=== PATIENT | male | born 1965 | race Caucasian/White ===

== ENCOUNTER 2016-08-12 06:10 | Day surgery (SDC) | payer OTHER ==
[2016-08-12] MEDS ORDERED: LACTATED RINGERS 1,000 ML IV ONE (06:38)
[2016-08-12] MEDS ORDERED: GLYCOPYRROLATE 1 MG/5 ML VIAL IVP ONE (08:21)
[2016-08-12] MEDS ORDERED: MIDAZOLAM 2 MG/2 ML VIAL IVP ONE (08:21)
[2016-08-12] MEDS ORDERED: METOCLOPRAMIDE 10 MG/2 ML VIAL IVP ONE (08:21)
[2016-08-12] MEDS ORDERED: KETAMINE 500 MG/10 ML VIAL IVP ONE (08:21)
[2016-08-12] MEDS ORDERED: ONDANSETRON 4 MG/2 ML VIAL IVP ONE (08:21)
[2016-08-12] MEDS ORDERED: PROPOFOL 200 MG/20 ML VIAL IVP ONE (08:21)
[2016-08-12] MEDS ORDERED: LIDOCAINE-MPF 2% 5 ML VIAL IM ONE (08:21)
== END 2016-08-12 06:11 | disposition home or self-care (01) ==
PROC: 0DBL8ZX Excision of Transverse Colon, Via Natural or Artificial Opening Endoscopic, Diagnostic (ICD-10-PCS; 2016-08-12)
PROC: 0DBH8ZX Excision of Cecum, Via Natural or Artificial Opening Endoscopic, Diagnostic (ICD-10-PCS; principal; 2016-08-12 07:30)
DX: Z12.11 Encounter for screening for malignant neoplasm of colon (principal); K64.4 Residual hemorrhoidal skin tags; K64.8 Other hemorrhoids; K21.9 Gastro-esophageal reflux disease without esophagitis; G47.30 Sleep apnea, unspecified; E66.01 Morbid (severe) obesity due to excess calories; Z80.0 Family history of malignant neoplasm of digestive organs; Z83.3 Family history of diabetes mellitus; Z90.49 Acquired absence of other specified parts of digestive tract; Z68.44 Body mass index [BMI] 60.0-69.9, adult; Z96.659 Presence of unspecified artificial knee joint
CPT/HCPCS: 45380; J7120

== ENCOUNTER 2016-10-15 09:34 | Emergency (ER) | payer OTHER ==
[2016-10-15] MEDS ORDERED: DEXAMETHASONE 10 MG/ML VIAL PO STA (10:42)
--- NOTE | 2016-10-15 10:47 | ED Physician Documentation ---
PD HPI BACK PAIN - Stated complaint Stated Complaint: LUMBAR PX - Chief complaint Chief Complaint: Back Pain - History obtained from History obtained from: Patient, Family - History of Present Illness Timing - onset: How many weeks ago (2) Timing - duration: Weeks (2) Timing - details: Gradual onset, Still present, Waxing and waning Location: Lower, Right Quality: Pain, Spasm, Sharp Associated symptoms: Numbness (To the top of the right foot.). No: Fever, Weakness, Incontinent of urine Improves with: Rest, Position Worsened by: Movement Contributing factors: Other (standing for graduation 2 weeks ago this started. Walked a long way yesterday and this is much worse.) Similar symptoms before: No diagnosis Recently seen: Not recently seen - Additional information Additional information: 50 y/o male has "over done it" 2 weeks ago with prolonged standing and then yesterday he went to [place] and did a lot of walking and this morning he is so stiff he could barely get out of bed. Review of Systems Constitutional: denies: Fever Nose: denies: Congestion Throat: denies: Sore throat Cardiac: denies: Chest pain / pressure, Palpitations Respiratory: reports: Cough (chronically X 2 years). denies: Dyspnea GI: denies: Abdominal Pain, Nausea, Vomiting : denies: Dysuria, Frequency Skin: denies: Rash Musculoskeletal: reports: Back pain. denies: Neck pain, Extremity pain, Joint pain, Extremity swelling Neurologic: reports: Numbness (to the top of the right foot over the 1/2 interspace.). denies: Generalized weakness, Focal weakness PD PAST MEDICAL HISTORY - Past Medical History Cardiovascular: None Respiratory: Sleep apnea, CPAP use Neuro: Headache/migraine, Peripheral neuropathy Endocrine/Autoimmune: None GI: GERD : None HEENT: None Psych: None Musculoskeletal: Osteoarthritis Derm: None - Past Surgical History Past Surgical History: Yes General: Cholecystectomy, Colonoscopy Ortho: Knee replacement - Present Medications Home Medications: Ambulatory Orders Medication Instructions Recorded Confirmed Gabapentin [Gralise] 600 mg PO BID 02/04/13 10/15/16 Metoprolol Succinate [Toprol Xl] 50 mg PO DAILY 02/04/13 10/15/16 Cholecalciferol (Vitamin D3) 1 tab PO DAILY 06/25/14 10/15/16 [Vitamin D-400] Multivitamin [Multi Vitamin Daily] 1 tab PO DAILY 06/25/14 10/15/16 [place]-3 Fatty Acids/Fish Oil [Fish 1 tab PO DAILY 06/25/14 10/15/16 Oil 1,000 mg Capsule] Pantoprazole Sodium [Protonix] 40 mg PO BID 06/25/14 10/15/16 Cyclobenzaprine [Flexeril] 10 mg PO TID PRN #20 tablet 10/15/16 HYDROcod/ACETAM 5/325 [[place] 5/325] 1 - 2 ea PO Q6H PRN #15 tablet 10/15/16 Meloxicam [Meloxicam] 15 mg PO DAILY 10/15/16 10/15/16 - Allergies Allergies/Adverse Reactions: Allergies Allergy/AdvReac Type Severity Reaction Status Date / Time No Known Drug Allergies Allergy Verified 10/15/16 09:42 - Social History Does the pt smoke?: No Smoking Status: Never smoker Does the pt drink ETOH?: Yes ETOH Use: Beer Does the pt have substance abuse?: No - Immunizations Immunizations are current?: Yes - POLST Patient has POLST: No PD ED PE NORMAL - Vitals Vital signs reviewed: Yes (normal ) - General General: No acute distress, Well developed/nourished - HEENT HEENT: Atraumatic, PERRL, EOMI - Neck Neck: Supple, no meningeal sign - Cardiac Cardiac: RRR, No murmur - Respiratory Respiratory: No respiratory distress, Clear bilaterally - Back Back: No CVA TTP, No spinal TTP, Other (There is tenderness to the paraspinous muscles over the right lower lumbar area. ) - Derm Derm: Normal color, Warm and dry, No rash - Extremities Extremities: No deformity, No edema - Neuro Neuro: Alert and oriented X 3, No motor deficit, Normal speech, Other ( subjective numbness to the dorsal 1/2 interspace on the right foot. ) - Psych Psych: Normal mood, Normal affect Results - Vitals Vitals: Vital Signs - 24 hr 10/15/16 09:40 Heart Rate 65 Respiratory 15 Rate Blood Pressure 128/67 O2 Saturation 97 Oxygen O2 Source Room air PD MEDICAL DECISION MAKING - ED course Complexity details: considered differential, d/w patient ED course: 50 y/o male with right sided sciatica is given decadron in the ED and we will put him on some pain medication and muscle relaxant. Departure - Departure Disposition: Home, Self Care Clinical Impression: Sciatica Qualifiers: Laterality: right Qualified Code(s): M54.31 - Sciatica, right side Condition: Stable Instructions: ED Spasm Back No Trauma, ED Sciatica Follow-Up: Kiya Gallegos DO [Primary Care Provider] - Prescriptions: Cyclobenzaprine [Flexeril] 10 mg PO TID PRN #20 tablet PRN Reason: Spasms HYDROcod/ACETAM 5/325 [[place] 5/325] 1 - 2 ea PO Q6H PRN #15 tablet PRN Reason: Pain
[2016-10-15] MEDS ORDERED: DEXAMETHASONE 10 MG/ML VIAL ONE (10:52)
[2016-10-15 10:59] VITALS: BP 114/62
== END 2016-10-15 11:00 | disposition home or self-care (01) ==
LOC: ED 09:34
DX: M54.41 Lumbago with sciatica, right side (principal); G62.9 Polyneuropathy, unspecified
CPT/HCPCS: 99283

== ENCOUNTER 2017-04-19 08:00 | Outpatient (CLI) | payer OTHER ==
[2017-04-19 13:40] LABS: BASOPHILS # (AUTO) 0.1 10^3/uL (0.0-0.1); BASOPHILS % (AUTO) 0.8 %; EOSINOPHILS # (AUTO) 0.2 10^3/uL (0.0-0.7); EOSINOPHILS % (AUTO) 2.3 %; HCT - HEMATOCRIT 38.4 % (42.0-52.0); HGB - HEMOGLOBIN 12.7 g/dL (14.0-18.0); LYMPHOCYTES # (AUTO) 1.7 10^3/uL (1.5-3.5); LYMPHOCYTES % (AUTO) 23.1 %; MEAN CORPUSCULAR HEMOGLOBIN 28.5 pg (27.0-31.0); MEAN CORPUSCULAR HGB CONC 33.1 g/dL (32.0-36.0); MEAN CORPUSCULAR VOLUME 86.2 fL (80.0-94.0); MEAN PLATELET VOLUME 10.8 fL (7.4-11.4); MONOCYTES # (AUTO) 0.4 10^3/uL (0.0-1.0); MONOCYTES % (AUTO) 5.8 %; NEUTROPHILS # (AUTO) 4.9 10^3/uL (1.5-6.6); RED BLOOD COUNT 4.45 10^6/uL (4.70-6.10); RED CELL DISTRIBUTION WIDTH 15.8 % (12.0-15.0); UNCORRECTED WHITE BLOOD COUNT 7.2 x10^3/uL; WHITE BLOOD COUNT 7.2 x10^3/uL (4.8-10.8)
[2017-04-19 14:02] LABS: ALBUMIN/GLOBULIN RATIO 1.1 (1.0-2.2); BILIRUBIN,TOTAL 0.7 mg/dL (0.2-1.0); BUN - BLOOD UREA NITROGEN 22 mg/dL (6-20); CALCIUM 9.1 mg/dL (8.5-10.3); CARBON DIOXIDE - CO2 28 mmol/L (21-32); CHLORIDE 105 mmol/L (101-111); CHOL/HDL RATIO 5.3 (<5.0); CHOLESTEROL 192 mg/dL; CREATININE 0.8 mg/dL (0.6-1.2); GFR - MDRD 102 (>89); GLUCOSE 107 mg/dL (70-100); HDL CHOLESTEROL 36 mg/dL; SODIUM 140 mmol/L (135-145); TOTAL PROTEIN 7.2 g/dL (6.7-8.2)
[2017-04-19 14:16] LABS: LDL/HDL RATIO 3.5 (<3.6); TRIGLYCERIDES 145 mg/dL; VLDL CHOLESTEROL 29 mg/dL
== END 2017-04-19 08:01 | disposition home or self-care (01) ==
LOC: LAB.WCP 08:00
PROVIDERS: ATTEND Family Medicine
DX: Z00.00 Encounter for general adult medical examination without abnormal findings (principal); Z12.5 Encounter for screening for malignant neoplasm of prostate
CPT/HCPCS: 36415; 80053; 80061; 84153; 85025

== ENCOUNTER 2017-06-07 08:00 | Outpatient (CLI) | payer OTHER | END 2017-06-07 08:01 | disposition home or self-care (01) | LOC: LAB.WCP 08:00 | PROVIDERS: ATTEND Family Medicine | DX: R19.7 Diarrhea, unspecified (principal) | CPT/HCPCS: 81599; 83630; 87045; 87046; 87177; 87209; 87329; 87493 ==

== ENCOUNTER 2018-06-08 15:36 | Outpatient (CLI) | payer BC ==
[2018-06-08 19:16] LABS: HGB - HEMOGLOBIN 13.1 g/dL (14.0-18.0); MEAN CORPUSCULAR HEMOGLOBIN 28.6 pg (27.0-31.0); MEAN CORPUSCULAR HGB CONC 32.9 g/dL (32.0-36.0); MEAN CORPUSCULAR VOLUME 86.7 fL (80.0-94.0); MEAN PLATELET VOLUME 10.5 fL (7.4-11.4); RED BLOOD COUNT 4.57 10^6/uL (4.70-6.10); WHITE BLOOD COUNT 7.7 x10^3/uL (4.8-10.8)
[2018-06-08 20:00] LABS: RHEUMATOID FACTOR NEGATIVE (Negative)
[2018-06-08 20:06] LABS: CRP - C-REACTIVE PROTEIN 3.9 mg/dL (0-1.0)
[2018-06-08 20:21] LABS: URIC ACID 7.7 mg/dL (2.6-7.2)
[2018-06-12 20:11] LABS: ANA SCREEN POSITIVE (NEGATIVE)
== END 2018-06-08 23:59 | disposition home or self-care (01) ==
LOC: LAB.WCP 15:36
PROVIDERS: ATTEND Family Medicine
DX: M25.50 Pain in unspecified joint (principal); M77.9 Enthesopathy, unspecified
CPT/HCPCS: 36415; 84550; 85027; 85651; 86038; 86140; 86200; 86430

== ENCOUNTER 2018-06-08 16:30 | Outpatient (CLI) | payer BC ==
--- NOTE | 2018-06-11 00:10 | XRAY Report ---
Reason: TENDINITIS,ARTHRALGIAS Procedure Date: 06/08/2018 Accession Number: [id number] / [id number] Procedure: XR - Shoulder 2 View LT CPT Code: FULL RESULT: EXAM: LEFT SHOULDER RADIOGRAPHY EXAM DATE: 06/08/2018 05:37 PM. CLINICAL HISTORY: TENDINITIS,ARTHRALGIAS. COMPARISON: None. TECHNIQUE: 2 views. FINDINGS: Bones: Normal. No fracture or bone lesion. Joints: Minimal acromioclavicular and glenohumeral degenerative joint disease. No dislocation. Soft tissues: The visualized hemithorax is unremarkable. No soft tissue swelling. IMPRESSION: Minimal acromioclavicular and glenohumeral degenerative joint disease. RADIA
--- NOTE | 2018-06-11 11:27 | XRAY Report ---
Reason: Right ankle arthralgia Procedure Date: 06/08/2018 Accession Number: [id number] / [id number] Procedure: XR - Ankle 3 View RT CPT Code: FULL RESULT: EXAM: RIGHT ANKLE RADIOGRAPHY EXAM DATE: 06/08/2018 05:37 PM. CLINICAL HISTORY: Right ankle arthralgia. COMPARISON: None. TECHNIQUE: 3 views. FINDINGS: Bones: Degenerative changes are seen in the region of the tibiotalar joint as well as visualized portions of the midfoot. Lateral view demonstrates inferior and posterior calcaneal spurring. Joints: No joint effusion or pedro subluxation. Soft Tissues: Marked soft tissue swelling about the ankle. IMPRESSION: Soft tissue swelling around the ankle as well as degenerative changes. RADIA
== END 2018-06-08 16:31 | disposition home or self-care (01) ==
LOC: DI 16:30
PROVIDERS: ATTEND Family Medicine
DX: M19.012 Primary osteoarthritis, left shoulder (principal); M19.072 Primary osteoarthritis, left ankle and foot; R22.41 Localized swelling, mass and lump, right lower limb
CPT/HCPCS: 36415; 84550; 85027; 85651; 86038; 86140; 86200; 86430

== ENCOUNTER 2018-12-25 15:31 | Outpatient (CLI) | payer BC ==
[2018-12-25 21:03] VITALS: BP 100/60
--- NOTE | 2018-12-25 21:03 | SLEEP CARE CONSULTATION ---
Information from patient questionnaire entered by Deyanira Torres. I have reviewed and concur with the information entered by Deyanira Torres. This document represents the service I personally performed and the decisions made by me, Ezio Swartz MD, [facility]. History of Present Illness Reason for Visit: sleep apnea on CPAP therapy, Re-establish care Chief Complaint: reports: Fatigue Duration of Symptoms: 2 YEARS Usual bedtime: 2230 Time it takes to fall asleep: 1 MINUTE Snores at night: Yes Observed to quit breathing while asleep: Yes Sleeps alone due to snoring: No Number of times waking at night: 2 Reasons for waking at night: reports: Bathroom, Other (COUGHING) Toss, Turn, or Twitch while sleeping: Yes Recalls having dreams: Yes Usually gets out of bed at: 0700 Feels refreshed in the morning: Yes Morning headache: No Sleepy or fatigued during the day: Yes Ever fallen asleep while driving: No Takes day naps: Yes Dreams during day naps: No Prior sleep studies: Yes Year and Where: 2009 [facility] Additional HPI information: I had the pleasure of seeing Mr. Millan today regarding obstructive sleep apnea-hypopnea. As you know, he is a 53 year old gentleman who was diagnosed with the sleep-disordered breathing here in 2009. The AHI was 88.2. He was prescribed a CPAP device set at 13 cmH2O. He uses it every night and all night. The compliance data show usage in 180 out of the past 180 nights, averaging 6.9 hours a night. The residual AHI is < 1 and average. He wears a Respironics Wisp nasal mask. He gets his supplies from [facility]. He finds the positive airway pressure therapy very beneficial. His heated humidifier did not fit and has never used it. Now he complains of chronic cough. CPAP Compliance Data - Data Reviewed with Patient Average duration of nightly device use: 6H 55M Compliance rate %: 98.9 Current pressure setting (cmH2O): 13 Humidity settin Subjective Initial [place] Sleepiness Scale score: 10 Past Medical History Past Medical History: reports: Asthma, GERD Social History The patient's occupation is a [employer]OUN[employer]. Patient is and lives in [place]. Have you smoked in the past 12 months: No Alcohol use: Yes Alcohol amount and frequency: 1/DAY Caffeine use: Yes Caffeine amount and frequency: 3/DAY Family History Family history of sleep disordered breathing: Yes Family Hx Sleep Apnea: Mother: Snoring, Father: Snoring Allergies and Home Medications Drug allergies reviewed: Yes Home medication list reviewed: Yes Review of Systems Cardiovascular: denies: high blood pressure, palpitations, chest pain, irregular heart rate or pulse, leg or foot swelling, have to sleep sitting up, other Respiratory: reports: sputum production, chronic cough Gastrointestinal: reports: heartburn Urinary: denies: incontinence, frequency, urgency, impotence, other Neurological: denies: headaches, seizure, head trauma, disorientation, speech dysfunction, gait or balance problems, fainting or unconsciousness, other Psychiatric: denies: Attention Deficit Hyperactivity, anxiety, depression, mood disorder, claustrophobia, other Ear/Nose/Throat: reports: sinus problems, injury to nose Endocrine: denies: thyroid disease, history of goiter, sluggishness, too hot or cold, excessive thirst, increased appetite, increased urination, unexplained weakness, other Musculoskeletal: reports: back pain Physical Exam Vital signs obtained and entered by: Dr. Swartz Blood Pressure: 100/60 Cuff size: long Heart Rate: 65 O2 Saturation: 95 Height: 5 ft 9 in Weight (kg): 380 lb Body Mass Index: 56.1 BMI Classification: Class 3 HEENT: No craniofacial malformation Nostrils: patent to airflow Turbinates: normal Septum: midline Mouth and throat: narrow oropharynx Soft palate: long Hard palate: normal Uvula: normal Uvula visualization: 25% Mallampati Class III Tongue: normal in size Tonsils: small Chin and jaw: normal size and position Neck: normal w/o lymphadenopathy or thyromegaly Heart: regular rate and rhythm Lungs: clear bilaterally Abdomen: soft Extremities: no edema or clubbing Neurologic: intact Impression and Plan IMPRESSION: 1. Obstructive Sleep Apnea-Hypopnea Syndrome, severe, as previously diagnosed almost 10 years ago. He has good treatment compliance. The current pressure s etting appears effective and comfortable. Narrow oropharynx and obesity are common predisposing factors for obstructive sleep apnea-hypopnea syndrome. Pathophysiology of sleep-disordered breathing was discussed. Because the CPAP is now older than the useful life of 5 years, I will order the patient a new one and make it an autoCPAP set between 8 and 13 cmH2O. Plan: 1. Prescription made for an autoCPAP, heated humidifier, and related supplies. 2. Try the new ResMed N30i mask. 3. Attempt to lose weight. 4. Return for follow up after one month on the new machine. I spent 100% of this 15 minute visit face to face with the patient with greater than 50% of this was spent time counseling the patient and coordination of care.
== END 2018-12-25 15:32 | disposition home or self-care (01) ==
LOC: SC 15:31
PROVIDERS: ATTEND Internal Medicine Pulmonary Disease
DX: G47.33 Obstructive sleep apnea (adult) (pediatric) (principal)
CPT/HCPCS: 99203; 99212

== ENCOUNTER 2019-06-11 14:16 | Outpatient (CLI) | payer BC, OTHER ==
--- NOTE | 2019-06-11 14:44 | SLEEP CARE CONSULTATION ---
Information from patient questionnaire entered by Deyanira Torres. I have reviewed and concur with the information entered by Deyanira Torres. This document represents the service I personally performed and the decisions made by me, Ezio Swartz MD, [facility]. History of Present Illness Previous diagnosis: Very Severe, Obstructive Sleep Apnea-Hypopnea Syndrome AHI: 88.2 Reason for follow up: first compliance Equipment type: CPAP Equipment obtained from: [employer] Prior sleep studies: Yes HPI additional information: Mr. Millan returned today for follow up of nasal CPAP therapy. He was diagnosed to have very severe obstructive sleep apnea-hypopnea syndrome and recently acquired a new machine from [employer]. The patient wears a nasal mask. He reports using the device nightly and all through the night. The compliance report shows usage in 30 nights out of the past 30 nights, averaging 6.5 hours a night. The > 4 hour compliance rate for the past 30 days is 100%. He complained of no particular problem with the device such as soreness on the face, dry nose, epistaxis, nasal congestion or headache. He thinks that the pressure of 13 cmH2O is comfortable (he does not like anything lower). On the CPAP therapy he notices improvement in his sleep quality, and that he wakes up feeling fresher in the morning and more awake/alert during the day. [place] Sleepiness Scale score is 5. His notices no snore at all. The average residual AHI is 0.6; and average time in large leak per day is 0. CPAP Compliance Data - Data Reviewed with Patient Average duration of nightly device use: 6h 31m Compliance rate %: 96.7 Current pressure setting (cmH2O): 13 Humidity settin Heated hose settin Average residual AHI: 0.6 Average large leak: 0s Subjective Current pressure setting perceived as: comfortable Initial [place] Sleepiness Scale score: 10 Current [place] Sleepiness Scale score: 5 Allergies and Home Medications Drug allergies reviewed: Yes (NKDA) Home medication list reviewed: Yes ([place], gabapentin, meloxicam, pantoprazole, Vitamin D3) Review of Systems Review of systems same as previous: Yes Physical Exam Height: 5 ft 9 in Weight: 380 lb Body Mass Index: 56.1 BMI Classification: Morbidly Obese Impression and Plan IMPRESSION: 1. Obstructive Sleep Apnea-Hypopnea Syndrome, very severe, with the patient doing well on nasal CPAP therapy. He has excellent compliance and significant clinical improvement. The current pressure appears effective and comfortable. His mask fits well. Overall, he is very satisfied with treatment and plans to continue with it long-term. No adjustment is necessary today. PLAN: 1. Continue with CPAP set at 13 cmH2O. 2. Try to lose weight 3. Return in one year for follow up or earlier if there is any problem with the treatment. I spent 100% of this visit face to face with the patient with greater than 50% of this was spent time counseling the patient and coordination of care.
== END 2019-06-11 14:17 | disposition home or self-care (01) ==
LOC: SC 14:16
PROVIDERS: ATTEND Internal Medicine Pulmonary Disease
DX: G47.33 Obstructive sleep apnea (adult) (pediatric) (principal); E66.01 Morbid (severe) obesity due to excess calories; Z68.43 Body mass index [BMI] 50.0-59.9, adult
CPT/HCPCS: 99212; 99213

== ENCOUNTER 2019-08-30 20:56 | Emergency (ER) | payer OTHER ==
[2019-08-30 21:11] VITALS: BP 146/82
--- NOTE | 2019-08-30 21:23 | ED Physician Documentation ---
PD HPI UPPER EXT INJURY - Stated complaint Stated Complaint: RT INDEX FINGER LAC - Chief complaint Chief Complaint: Laceration - History of Present Illness Location: Left (Right-handed gentleman was chopping wood and cut his left index finger, note not the right index finger as noted by registration staff which shows up in the chief complaint. Just prior to arrival. Tetanus is up-to-date.) Review of Systems Constitutional: reports: Reviewed and negative Throat: reports: Reviewed and negative Cardiac: reports: Reviewed and negative PD PAST MEDICAL HISTORY - Past Medical History Cardiovascular: None Respiratory: Sleep apnea, CPAP use Endocrine/Autoimmune: None GI: GERD : None HEENT: None Psych: None Musculoskeletal: Osteoarthritis Derm: None - Past Surgical History Past Surgical History: Yes General: Cholecystectomy, Colonoscopy Ortho: Knee replacement - Present Medications Home Medications: Ambulatory Orders Medication Instructions Recorded Confirmed Gabapentin [Gralise] 600 mg PO BID 02/04/13 10/15/16 Metoprolol Succinate [Toprol Xl] 50 mg PO DAILY 02/04/13 10/15/16 Cholecalciferol (Vitamin D3) 1 tab PO DAILY 06/25/14 10/15/16 [Vitamin D-400] Multivitamin [Multi Vitamin Daily] 1 tab PO DAILY 06/25/14 10/15/16 [place]-3 Fatty Acids/Fish Oil [Fish 1 tab PO DAILY 06/25/14 10/15/16 Oil 1,000 mg Capsule] Pantoprazole Sodium [Protonix] 40 mg PO BID 06/25/14 10/15/16 Cyclobenzaprine [Flexeril] 10 mg PO TID PRN #20 tablet 10/15/16 HYDROcod/ACETAM 5/325 [[place] 5/325] 1 - 2 ea PO Q6H PRN #15 tablet 10/15/16 Meloxicam 15 mg PO DAILY 10/15/16 10/15/16 Hydrocodone/Acetaminophen 1 - 2 each PO Q6H PRN #14 tablet 08/30/19 [Hydrocodon-Acetaminophen 5-325] - Allergies Allergies/Adverse Reactions: Allergies Allergy/AdvReac Type Severity Reaction Status Date / Time No Known Drug Allergies Allergy Verified 08/30/19 21:11 - Social History Does the pt smoke?: No Smoking Status: Never smoker Does the pt drink ETOH?: Yes Does the pt have substance abuse?: No - Immunizations Immunizations are current?: Yes - POLST Patient has POLST: No PD ED PE NORMAL - Vitals Vital signs reviewed: Yes - General General: Alert and oriented X 3, No acute distress - Extremities Extremities: Other (He has a less than 1 cm avulsion of the tip of the left index finger) - Neuro Neuro: Alert and oriented X 3, Normal speech Results - Vitals Vitals: Vital Signs - 24 hr 08/30/19 21:05 Temperature 36.4 C L Heart Rate 76 Respiratory 16 Rate Blood Pressure 146/82 H O2 Saturation 97 Oxygen O2 Source Room air Procedures - Regional nerve block Nerve block site: Digital - note digit(s) (2nd) Right / left: Right Nerve block anesthesia: Lidocaine 1% Nerve block aftercare: Excellent anesthesia PD MEDICAL DECISION MAKING - ED course ED course: Wound was irrigated, dressed with Gelfoam and tube gauze, counseled on wound care. Departure - Departure Disposition: Home, Self Care Clinical Impression: Avulsion of skin of finger Qualifiers: Encounter type: initial encounter Qualified Code(s): S61.209A - Unspecified open wound of unspecified finger without damage to nail, initial encounter Condition: Good Record reviewed to determine appropriate education?: Yes Instructions: ED Laceration Amputation Finger Tip Open Tx Prescriptions: Hydrocodone/Acetaminophen [Hydrocodon-Acetaminophen 5-325] 1 - 2 each PO Q6H PRN #14 tablet PRN Reason: pain Comments: The size of the tissue defect would suggest that this will heal and without specific intervention, keep the current dressing on until Monday evening. At that point you can take it off, wash it briefly with soap and water, then dressed it with Xeroform gauze which is available at the drugstore. And keep it covered with a loose wrap over that. Return for new or worsening symptoms. You can follow-up with your primary care physician for wound checks or follow-up wi th the closest hand surgeon which is Dr. Mcginnis in [place], the phone number there is [phone].
[2019-08-30] MEDS ORDERED: HYDROcod/ACET 5/325 Prepack 4 PO STA (21:42)
== END 2019-08-30 22:20 | disposition home or self-care (01) ==
LOC: ED 20:56
DX: S61.211A Laceration without foreign body of left index finger without damage to nail, initial encounter (principal); W27.8XXA Contact with other nonpowered hand tool, initial encounter; Y93.89 Activity, other specified

== ENCOUNTER 2021-02-01 07:08 | Outpatient (CLI) | payer OTHER | END 2021-02-01 07:09 | disposition home or self-care (01) | LOC: LAB.N 07:08 | PROVIDERS: ATTEND Family Medicine | DX: Z53.9 Procedure and treatment not carried out, unspecified reason (principal); I10 Essential (primary) hypertension; Z79.899 Other long term (current) drug therapy; E78.9 Disorder of lipoprotein metabolism, unspecified; E66.01 Morbid (severe) obesity due to excess calories; Z12.5 Encounter for screening for malignant neoplasm of prostate; M10.00 Idiopathic gout, unspecified site ==

== ENCOUNTER 2021-03-29 14:24 | Outpatient (CLI) | payer OTHER ==
--- NOTE | 2021-03-30 08:19 | SLEEP CARE CONSULTATION ---
Information from patient questionnaire entered by Aamir Payne MA. I have reviewed and concur with the information entered by Aamir Payne MA. This document represents the service I personally performed and the decisions made by me, Ezio Swartz MD, [facility]. History of Present Illness Service Date and Time: 03/29/2021 1424 Previous diagnosis: Very Severe, Obstructive Sleep Apnea-Hypopnea Syndrome AHI: 88.2 Reason for follow up: annual Equipment type: CPAP Equipment obtained from: [employer] Prior sleep studies: Yes Year and Where: 2009 [facility] additional information: Mr. Millan returned today for annual follow up of nasal CPAP therapy. He was diagnosed to have very severe obstructive sleep apnea-hypopnea syndrome and recently acquired a new machine from [employer]. The patient wears a nasal mask. He reports using the device nightly and all through the night. The compliance re port shows usage in 180 nights out of the past 180 nights, averaging 7.2 hours a night. The > 4 hour compliance rate for the past 180 days is 100%. He complained of no particular problem with the device such as soreness on the face, dry nose, epistaxis, nasal congestion or headache. He thinks that the pressure of 13 cmH2O is comfortable (he does not like anything lower). On the CPAP therapy he notices improvement in his sleep quality, and that he wakes up feeling fresher in the morning and more awake/alert during the day. [place] Sleepiness Scale score is 4. His notices no snore at all. The average residual AHI is 0.5; and average time in large leak per day is 0. He has already registered his Respironics DreamStation 1 and is waiting for the replacement. He has some cough but it precedes the DreamStation autoCPAP. Sleep Study - Results Prior sleep studies: Yes Year and Where: 2009 [facility] CPAP Compliance Data - Data Reviewed with Patient Average duration of nightly device use: 7 hours 11 minutes Compliance rate %: 100 Humidity settin Heated hose settin Average residual AHI: 0.5 Average large leak: 0 Subjective Patient concerns: reports: nasal congestion, dry mouth, nose, throat Initial [place] Sleepiness Scale score: 10 Current [place] Sleepiness Scale score: 4 (2020) Allergies and Home Medications Drug allergies reviewed: Yes Home medication list reviewed: Yes Review of Systems Review of systems same as previous: Yes Physical Exam Vital signs obtained and entered by: Issa Payne CMA AAMA Blood Pressure: 130/84 (right) Cuff size: wrist Heart Rate: 61 O2 Saturation: 99 (with mask) Height: 5 ft 9 in Weight: 410 lb Body Mass Index: 60.5 BMI Classification: Morbidly Obese Impression and Plan IMPRESSION: 1. Obstructive Sleep Apnea-Hypopnea Syndrome, very severe, with the patient doing well on nasal CPAP therapy. He has excellent compliance and significant clinical improvement. The current pressure appears effective and comfortable. His mask fits well. Overall, he is very satisfied with treatment and plans to continue with it long-term. No adjustment is necessary today. I advised him to look for black debris in the water reservoir and hose. He should also stop using the DreamStation 1 if he develops new symptoms of cough, wheeze, dizziness, headache, or chest tightness. PLAN: 1. Continue with CPAP set at 13 cmH2O. 2. Try to lose weight 3. Wait for DreamStation 2 autoCPAP from [facility]. 4. Return for follow up in a year or earlier if there is any problem. Follow up with Sleep Care in: 1 year Time Spent with Patient (minutes): 15
[2021-03-30 08:20] VITALS: BP 130/84
== END 2021-03-29 14:25 | disposition home or self-care (01) ==
LOC: SC 14:24
PROVIDERS: ATTEND Internal Medicine Pulmonary Disease
DX: G47.33 Obstructive sleep apnea (adult) (pediatric) (principal); E66.01 Morbid (severe) obesity due to excess calories; Z68.44 Body mass index [BMI] 60.0-69.9, adult
CPT/HCPCS: 99212